=== PATIENT | female | born 1965 | race Hispanic/Latino ===

== ENCOUNTER 2017-05-15 16:55 | Emergency (ER) | payer BC ==
[2017-05-15 16:59] VITALS: BMI 36.3
[2017-05-15 17:03] VITALS: TEMP 98.5; O2SAT 100
[2017-05-15] MEDS ORDERED: Sodium Chloride 0.9% 1,000 ML IV STA (17:13)
--- NOTE | 2017-05-15 17:16 | ED PDOC ---
Arrival/HPI - General Historian: Patient <Inderjit Cooley - Last Filed: 05/15/17 20:05> <Licha Pace - Last Filed: 05/15/17 20:12> - General Chief Complaint: Back Pain Time Seen by Provider: 05/15/17 16:58 - History of Present Illness Narrative History of Present Illness (Text): 05/15/17 17:15 Pt is a 51yo F w/ a PMhx of HTN and recurrent ureteral stones who is coming to the hospital with acute onset left flank pain. Denies burning/urgency/freq/or lack of urination. Denies fevers/chills. States pain is left sided, intense, sharp/stabbing and feels exactly like when she has had stones in the past Urologist: Dr. Jasmin Hauser: does not recall HTN meds Allergies: None FamHx: Unobtainable; patient is in too much pain Surgeries: C section, 2 rotator cuff repairs, multiple lithotripsy and stent placements Allergies: none Social: Lives at home, previous smoker, denies illicit drug use (states took percocet before coming for pain). (Inderjit Cooley) Past Medical History - Provider Review Nursing Documentation Reviewed: Yes - Travel History Have you recently traveled outside [place] w/in the past 3 mons?: No - Infectious Disease Hx of Infectious Diseases: None - Cardiac Hx Cardiac Disorders: Yes Hx Hypertension: Yes (unsure of med, but boarderline) - Pulmonary Hx Respiratory Disorders: No - Neurological Hx Neurological Disorder: No - HEENT Hx HEENT Disorder: No - Renal Hx Renal Disorder: Yes Hx Kidney Stones: Yes - Endocrine/Metabolic Hx Endocrine Disorders: No - Hematological/Oncological Hx Blood Disorders: No - Integumentary Hx Dermatological Disorder: No - Musculoskeletal/Rheumatological Hx Musculoskeletal Disorders: Yes Hx Back Pain: Yes - Gastrointestinal Hx Gastrointestinal Disorders: No - Genitourinary/Gynecological Hx Genitourinary Disorders: No - Psychiatric Hx Psychophysiologic Disorder: No Hx Substance Use: No - Surgical History Hx Cholecystectomy: Yes Other/Comment: b/l rotator cuff surgery. Kidney stone laser surgery - Anesthesia Hx Anesthesia: Yes Hx Anesthesia Reactions: No <Inderjit Cooley - Last Filed: 05/15/17 20:05> <Licha Pace - Last Filed: 05/15/17 20:12> - Patient History Narrative Patient History: as stated in HPI (Inderjit Cooley) Family/Social History - Physician Review Nursing Documentation Reviewed: Yes Family/Social History: No Known Family HX Smoking Status: Never Smoked Hx Alcohol Use: No Hx Substance Use: No <LangbernadineInderjit nickerson - Last Filed: 05/15/17 20:05> Allergies/Home Meds <Inderjit Cooley - Last Filed: 05/15/17 20:05> <KatelynnRyanfloyd - Last Filed: 05/15/17 20:12> Allergies/Adverse Reactions: Allergies No Known Allergies Allergy (Verified 05/15/17 16:59) Review of Systems - Review of Systems Constitutional: absent: Fatigue, Weight Change Eyes: absent: Vision Changes, Photophobia ENT: absent: Hearing Changes, Tinnitus Respiratory: absent: SOB, Cough, Sputum Cardiovascular: absent: Chest Pain Gastrointestinal: Abdominal Pain, Food Intolerance Genitourinary Female: absent: Dysuria, Frequency, Hematuria, Urine Output Changes Musculoskeletal: Back Pain. absent: Arthralgias, Neck Pain, Joint Swelling, Myalgias Skin: absent: Rash, Pruritis Neurological: absent: Headache, Dizziness Endocrine: absent: Diaphoresis Hemo/Lymphatic: absent: Adenopathy Psychiatric: absent: Anxiety <Inderjit Cooley - Last Filed: 05/15/17 20:05> Physical Exam Vital Signs Reviewed: Yes Temperature: Afebrile Blood Pressure: Hypertensive Pulse: Tachycardic Respiratory Rate: Tachypneic Appearance: Positive for: Uncomfortable (in immense pain crying hunched over in bed ) Mental Status: Positive for: Alert and Oriented X 3 - Systems Exam Head: Present: Atraumatic Pupils: Present: PERRL Extroacular Muscles: Present: EOMI Conjunctiva: Present: Normal Mouth: Present: Moist Mucous Membranes Neck: Present: Normal Range of Motion Respiratory/Chest: Present: Clear to Auscultation, Good Air Exchange Cardiovascular: Present: Regular Rate and Rhythm, Normal S1, S2, Tachycardic. No: Murmurs Abdomen: Present: Tenderness (left flank) Back: Present: Normal Inspection, CVA Tenderness (left sided ) Upper Extremity: Present: Normal Inspection. No: Cyanosis Lower Extremity: No: Edema, CALF TENDERNESS Neurological: Present: GCS=15, CN II-XII Intact, Speech Normal Skin: Present: Warm, Dry, Rashes Psychiatric: Present: Alert, Oriented x 3 <Inderjit Cooley - Last Filed: 05/15/17 20:05> Medical Decision Making <Inderjit Cooley - Last Filed: 05/15/17 20:05> <Licha Pace - Last Filed: 05/15/17 20:12> ED Course and Treatment: 05/15/17 17:27 CT Scan w/o Contrast CBC CMP Urinalysis Dilaudid, Toradol, NS bolus Disposition and reassess 05/15/17 17:29 CBC and CMP both WNL 05/15/17 19:17 CT scan showed obstructing 5mm proximal left uretral stone with left renal staghorn calculus; small bilateral non obstructing renal calculi with mild left hydronephrosis. 05/15/17 19:33 Placing a call to Dr. mckeon; awaiting call back 05/15/17 20:06 Dr. Shaw who is covering for Dr. Mckeon states that if the patients pain is controlled that she can go home and follow up in the urology clinic tomorrow. The patient is controlled in terms of pain and will be d/c home with close follow up tomorrow at Dr. Shaw's/Jasmin office. Case discussed with Dr. Pace The patient is encouraged to increase PO intake (fluids) (Inderjit Cooley) Report Date : 05/15/2017 18:58:41 PROCEDURE: CT Abdomen and Pelvis without intravenous contrast Dictator : Parish Perry MD IMPRESSION: Obstructing 5 mm proximal left ureteral calculus. Left renal staghorn calculus. Small bilateral nonobstructing renal calculi. Mild left hydronephrosis. No other acute abnormality. 05/15/17 19:48 Patient seen and examined with resident with c/o L flank pain. Given toradol and dilaudid and IVF with resolution of pain and feeling much better. CT showing 5 mm ureteral obstructive stone. Case discussed with Dr. Shaw, who said to d/c her home and have her use percocet or dilaudid orally and f/u in the urology office tomorrow. 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 (Katelynn,Rafik) - Lab Interpretations Lab Results: 05/15/17 17:27 05/15/17 17:27 Lab Results 05/15/17 17:39: Urine Color Yellow, Urine Appearance Clear, Urine pH 7.0, Ur Specific [place] 1.015, Urine Protein Negative, Urine Glucose (UA) Negative, Urine Ketones Negative, Urine Blood Trace-intact H, Urine Nitrate Negative, Urine Bilirubin Negative, Urine Urobilinogen 0.2, Ur Leukocyte Esterase Small H , Urine RBC 1 - 3, Urine WBC 2 - 5, Ur Epithelial Cells 3 - 4, Urine Bacteria Small, Urine HCG, Qual Negative 05/15/17 17:27: Sodium 138, Potassium 3.9, Chloride 101, Carbon Dioxide 23, Anion Gap 18, BUN 13, Creatinine 0.6, Est GFR ( Amer) > 60, Est GFR (Non- Af Amer) > 60, Random Glucose 139 H, Calcium 9.1, Total Bilirubin 0.6, AST 39, ALT 44, Alkaline Phosphatase 152 H, Total Protein 8.3, Albumin 4.6, Globulin 3.7 , Albumin/Globulin Ratio 1.2, Amylase 94, Lipase 251 05/15/17 17:27: PT 10.2, INR 0.94, APTT 27.8 05/15/17 17:27: WBC 9.4, RBC 5.00, Hgb 16.0, Hct 45.3, MCV 90.6, MCH 32.0, MCHC 35.3, RDW 12.5, Plt Count 231, MPV 9.7, Gran % 62.3, Lymph % (Auto) 29.3, [place] % (Auto) 5.0, Eos % (Auto) 3.3, Baso % (Auto) 0.1, Gran # 5.83, Lymph # 2.8, [place] # 0.5, Eos # 0.3, Baso # 0.01 - RAD Interpretation Radiology Orders: 05/15/17 17:12 ABD & PELVIS W/O PO OR IV CONT [CT] Stat - Medication Orders Current Medication Orders: Discontinued Medications Hydromorphone HCl (Dilaudid) 1 mg IVP STAT STA Stop: 05/15/17 17:19 Last Admin: 05/15/17 17:35 Dose: 1 mg Re-Assess: MAR Pain Assessment Document 05/15/17 18:35 OCS (Rec: 05/15/17 19:06 [id number]) Pain Reassessment Is this a pain reassessment? Yes Sleep Is patient sleeping during reassessment? Yes Sodium Chloride (Sodium Chloride 0.9%) 1,000 mls @ 999 mls/hr IV .Q1H1M STA Stop: 05/15/17 18:13 Last Admin: 05/15/17 17:36 Dose: 999 mls/hr Ceftriaxone Sodium (Rocephin 1 Gram Ivpb) 1 gm in 100 mls @ 200 mls/hr IVPB STAT STA PRN Reason: Protocol Stop: 05/15/17 18:48 Last Admin: 05/15/17 19:00 Dose: 200 mls/hr Ketorolac Tromethamine (Toradol) 30 mg IVP STAT STA Stop: 05/15/17 17:15 Last Admin: 05/15/17 17:35 Dose: 30 mg Re-Assess: MAR Pain Assessment Document 05/15/17 18:35 OCS (Rec: 05/15/17 19:06 [id number]) Pain Reassessment Is this a pain reassessment? Yes Sleep Is patient sleeping during reassessment? Yes Ondansetron HCl (Zofran Inj) 4 mg IVP STAT STA Stop: 05/15/17 17:14 Last Admin: 05/15/17 17:36 Dose: 4 mg - PA / GLOBAL ACCOUNT DIRECTOR / Resident Statement / has reviewed & agrees with the documentation as recorded. / has examined the patient and agrees with the treatment plan. <Licha Pace - Last Filed: 05/15/17 20:12> Disposition/Present on Arrival - Present on Arrival Any Indicators Present on Arrival: Yes History of DVT/PE: No History of Uncontrolled Diabetes: No Urinary Catheter: No History of Decub. Ulcer: No History Surgical Site Infection Following: None - Disposition Have Diagnosis and Disposition been Completed?: Yes Disposition Time: 20:09 Patient Plan: Discharge <Inderjit Cooley - Last Filed: 05/15/17 20:05> - Present on Arrival Any Indicators Present on Arrival: No - Disposition Have Diagnosis and Disposition been Completed?: Yes Disposition Time: 19:50 Patient Plan: Discharge <Licha Pace - Last Filed: 05/15/17 20:12> - Disposition Diagnosis: Left ureteral stone Patient Problems: Current Active Problems Problem Status Onset Left ureteral stone Acute Condition: GOOD Discharge Instructions (ExitCare): Ureteral Stones (ED) Additional Instructions: Drink a lot of fluids orally. Use the percocet as prescribed - 2 tabs every 6- 8 hours as needed. If no relief, use the dilaudid as prescribed. Follow up with Dr. Mckeon / Valeria tomorrow. Return to the emergency department if any new concerning symptoms. Prescriptions: HYDROmorphone [Dilaudid 2 mg Tab] 1 tab PO Q6H PRN #16 tab PRN Reason: Pain, Severe (8-10) Referrals: Sourav Ybarra MD [Primary Care Provider] - Follow up with primary Rich Mckeon MD [Staff Provider] - Follow up with primary
[2017-05-15] MEDS ORDERED: HYDROmorphone 1 mg/ml ISec IVP STA (17:18)
[2017-05-15 17:51] LABS: ALB/GLOB RATIO 1.2 (1.1-1.8); ALBUMIN 4.6 g/dL (3.0-4.8); ALT/SGPT 44 U/L (7-56); AMYLASE 94 U/L (35-125); AST/SGOT 39 U/L (15-39); BLOOD UREA NITROGEN 13 mg/dL (7-21); CALCIUM 9.1 mg/dL (8.4-10.5); GFR AFRICAN-AMERICAN > 60; GFR NON-AFRICAN AMERICAN > 60; LIPASE 251 U/L (23-300)
[2017-05-15 17:54] LABS: INR 0.94 (0.93-1.08); PARTIAL THROMBOPLASTIN TIME 27.8 Seconds (23.7-30.8); PROTHROMBIN TIME 10.2 Seconds (9.9-11.8)
[2017-05-15 17:59] LABS: MEAN CELL VOLUME 90.6 fL (80.0-105.0); WHITE BLOOD COUNT 9.4 10^3/ul (4.5-11.0)
[2017-05-15 18:00] LABS: BASO % 0.1 % (0.0-3.0); EOS # 0.3 (0.0-0.7); EOS % 3.3 % (1.5-5.0); GRAN # 5.83 (1.4-6.5); GRAN % 62.3 % (50.0-68.0); LYMPH # 2.8 (1.2-3.4); LYMPH % 29.3 % (22.0-35.0); MEAN CORPUSCULAR HGB CONC 35.3 g/dl (31.0-37.0); MEAN PLATELET VOLUME 9.7 fl (7.0-11.0); MONO # 0.5 (0.1-0.6); PLATELET COUNT 231 10^3/uL (120.0-450.0); RED CELL DISTRIBUTION WIDTH 12.5 % (11.5-14.5)
[2017-05-15 18:01] LABS: BASO # 0.01 K/mm3 (0.0-2.0)
[2017-05-15 18:09] LABS: URINE BILIRUBIN NEGATIVE (NEGATIVE); URINE BLOOD TRACE-INTACT (NEGATIVE); URINE GLUCOSE (UA) NEGATIVE (NEGATIVE); URINE LEUKOCYTE ESTERASE SMALL Leu/uL (NEGATIVE); URINE NITRATE NEGATIVE (NEGATIVE); URINE PROTEIN NEGATIVE mg/dL (<30 mg/dL); URINE UROBILINOGEN 0.2 E.U./dL (<1 E.U./dL)
[2017-05-15 18:13] LABS: URINE APPEARANCE CLEAR (CLEAR); URINE COLOR YELLOW (YELLOW)
[2017-05-15] MEDS ORDERED: cefTRIAXone 1 gm 1 GM/100 ML BAG IVPB STA (18:19)
[2017-05-15 18:21] LABS: HCG,QUALITATIVE URINE NEGATIVE (NEGATIVE)
[2017-05-15 18:25] VITALS: RESP 20
[2017-05-15 18:33] LABS: URINE BACTERIA SMALL (NEG)
--- NOTE | 2017-05-15 19:00 | CT ---
PROCEDURE: CT Abdomen and Pelvis without intravenous contrast HISTORY: L flank pain COMPARISON: 08/28/2014 TECHNIQUE: Without contrast.. Contrast Dose: 0 Radiation dose: Total exam DLP = 1356.62 mGy-cm. This CT exam was performed using one or more of the following dose reduction techniques: Automated exposure control, adjustment of the mA and/or kV according to patient size, and/or use of iterative reconstruction technique. FINDINGS: LOWER THORAX: Unremarkable. LIVER: Unremarkable. No gross lesion or ductal dilatation. GALLBLADDER AND BILE DUCTS: Status post cholecystectomy PANCREAS: Unremarkable. No gross lesion or ductal dilatation. SPLEEN: Unremarkable. ADRENALS: Unremarkable. No mass. KIDNEYS AND URETERS: Left renal staghorn calculus. Multiple small bilateral nonobstructing renal calculi. There is a 5 mm obstructing calculus in the proximal left ureter. There is mild left hydronephrosis. There is no right hydronephrosis. There is no renal mass. VASCULATURE: Unremarkable. No aortic aneurysm. BOWEL: Diverticulosis of descending and proximal sigmoid colon. No evidence of diverticulitis. No bowel obstruction. No other abnormal bowel loops are identified. APPENDIX: Unremarkable. Normal appendix. PERITONEUM: Unremarkable. No free fluid. No free air. LYMPH NODES: Unremarkable. No enlarged lymph nodes. BLADDER: Unremarkable. REPRODUCTIVE: Unremarkable uterus BONES: No acute fracture. OTHER FINDINGS: None. IMPRESSION: Obstructing 5 mm proximal left ureteral calculus. Left renal staghorn calculus. Small bilateral nonobstructing renal calculi. Mild left hydronephrosis. No other acute abnormality.
[2017-05-15 20:13] VITALS: BP 140/80; PULSE 90
== END 2017-05-15 20:10 | disposition home or self-care (01) ==
LOC: ED 16:55
DX: N20.1 Calculus of ureter (principal); I10 Essential (primary) hypertension
CPT/HCPCS: 74176; 80053; 81001; 82150; 83690; 84703; 85025; 85610; 85730; 87086; 96374; 96375; 99284; J0696; J1170; J1885; J2405; J7040

== ENCOUNTER 2017-08-02 15:40 | Inpatient (IN) | payer BC ==
[2017-08-02 15:41] VITALS: BMI 36.3
[2017-08-02] MEDS ORDERED: Sodium Chloride 0.9% 1,000 ML IV STA (16:19)
--- NOTE | 2017-08-02 16:25 | ED PDOC ---
Arrival/HPI - General Historian: Patient - History of Present Illness Time/Duration: 24 hours Symptom Onset: Sudden Symptom Course: Unchanged Quality: Throbbing Severity Level: 6 Activities at Onset: Rest Context: Home - General Chief Complaint: Back Pain Time Seen by Provider: 08/02/17 15:45 - History of Present Illness Narrative History of Present Illness (Text): 08/02/17 16:20 52yo F PMH nephrolithiasis recently treated for L staghorn calculi in April presenting with L flank pain x2 days. Pain is described as sharp, non-radiating flank pain, rated 6/10 constantly. Pt states that she had a uretral stent removed 2 weeks ago and 2 lithotripsy sessions done since then. However, pt states that last night she experienced the pain that was sharp and radiating to the L abdomen. Pt states it is similar to her usual kidney stone pain. Pt contacted Dr. Castellanos (her urologist) who advised her to come into the ED in case she needs a stent. pt denies fevers, hematuria, dysuria, n/v/d, cp, abd pain or any other complaints. (Sourav Santiago) Past Medical History - Provider Review Nursing Documentation Reviewed: Yes - Infectious Disease Hx of Infectious Diseases: None - Cardiac Hx Cardiac Disorders: Yes Hx Hypertension: Yes (on Norvasc 5mg) - Pulmonary Hx Respiratory Disorders: No - Neurological Hx Neurological Disorder: No - HEENT Hx HEENT Disorder: No - Renal Hx Renal Disorder: Yes Hx Kidney Stones: Yes (s/p stent removal 2 weeks ago and lithotripsy) - Endocrine/Metabolic Hx Endocrine Disorders: No - Hematological/Oncological Hx Blood Disorders: No - Integumentary Hx Dermatological Disorder: No - Musculoskeletal/Rheumatological Hx Musculoskeletal Disorders: Yes Hx Back Pain: Yes - Gastrointestinal Hx Gastrointestinal Disorders: No - Genitourinary/Gynecological Hx Genitourinary Disorders: No - Psychiatric Hx Psychophysiologic Disorder: No Hx Substance Use: No - Surgical History Hx Cholecystectomy: Yes Other/Comment: b/l rotator cuff surgery. Kidney stone laser surgery - Anesthesia Hx Anesthesia: Yes Hx Anesthesia Reactions: No Family/Social History - Physician Review Nursing Documentation Reviewed: Yes Family/Social History: No Known Family HX Smoking Status: Never Smoked Hx Alcohol Use: No Hx Substance Use: No Allergies/Home Meds Allergies/Adverse Reactions: Allergies No Known Allergies Allergy (Verified 08/02/17 16:11) Home Medications: Home Meds Medication Instructions Recorded Confirmed amLODIPine [Norvasc] 5 mg PO DAILY 08/02/17 08/02/17 Review of Systems - Physician Review All systems were reviewed & negative as marked: Yes - Review of Systems Constitutional: absent: Fevers, Night Sweats Cardiovascular: absent: Chest Pain, Palpitations Gastrointestinal: absent: Abdominal Pain, Diarrhea, Nausea, Vomiting Genitourinary Female: absent: Dysuria, Frequency, Hematuria Musculoskeletal: Other (L flank pain) Physical Exam Vital Signs Reviewed: Yes Appearance: Positive for: Well-Appearing Pain Distress: None Mental Status: Positive for: Alert and Oriented X 3 - Systems Exam Head: Present: Atraumatic, Normocephalic Pupils: Present: PERRL Extroacular Muscles: Present: EOMI Conjunctiva: Present: Normal Mouth: Present: Moist Mucous Membranes Neck: Present: Normal Range of Motion Respiratory/Chest: Present: Clear to Auscultation, Good Air Exchange. No: Respiratory Distress Cardiovascular: Present: Regular Rate and Rhythm, Normal S1, S2. No: Murmurs Abdomen: No: Tenderness, Distention Back: Present: CVA Tenderness (L>R). No: Midline Tenderness Upper Extremity: Present: Normal Inspection Lower Extremity: Present: Normal Inspection. No: Edema Neurological: Present: CN II-XII Intact, Speech Normal, Motor Func Grossly Intact, Normal Sensory Function Skin: Present: Warm, Dry Psychiatric: Present: Alert, Oriented x 3 Vital Signs Temp Pulse Resp BP Pulse Ox 08/02/17 18:20 87 16 128/76 99 08/02/17 16:07 98.7 F 90 18 123/68 99 Medical Decision Making Re-evaluation Time: 21:20 Reassessment Condition: Re-examined, Unchanged - Lab Interpretations I have reviewed the lab results: Yes ED Course and Treatment: 08/02/17 16:56 Claire Bolaños is a 52 year old female who presents to the emergency department with left flank pain. The patient was seen and examined with resident. Came up with treatment and disposition plan with resident. (Juan Mckeon) 08/02/17 16:39 Impression: 52yo F PMH nephrolithiasis s/p stent removal 2 weeks ago and lithotripsy x2 since then presenting with L flank pain Plan: - Reassess and disposition - KUB - Morphine for pain - Labs - UA Progress: 08/02/17 16:41 Dr. Castellanos was contacted and states to obtain KUB and labs and to get in touch with Dr. Jo regarding stent placement if results are concerning Report Date : 08/02/2017 17:27:56 KUB Creator : Varun Talamantes MD FINDINGS: BOWEL: Normal. No obstruction. No free air. BONES: Normal. OTHER FINDINGS: Calculus disease identified left midpole and lower pole region. The 2 largest calculi measure 15 and 18 mm. Midpole calculus right kidney 6 mm. IMPRESSION: Renal calculus disease bilaterally similar to that seen on prior plain film radiographs. CT - ABD PELVIS W/O PO OR IV CONT 05/15/2017 6:31:00 PM FINDINGS: Lower thorax: No acute findings. ABDOMEN: Liver: The liver is diffusely decreased in density, compatible with hepatic steatosis. Gallbladder and bile ducts: There has been a cholecystectomy. No biliary ductal dilatation. Pancreas: The pancreas is unremarkable. Spleen: The spleen is unremarkable. Adrenals: The adrenal glands are unremarkable. Kidneys and ureters: Moderate to severe left hydronephrosis with multiple left ureteral stones measuring 0.7 cm and 0.3 cm proximally and 3 mm and 3 mm distally. Additional bilateral nonobstructing renal stones, left greater than right, measuring up to 1 cm in the left lower pole. Left perinephric stranding. Stomach and bowel: Distal colonic diverticulosis without evidence of diverticulitis. No evidence of bowel obstruction. No pericolonic inflammatory stranding. Appendix: A normal appendix is identified. PELVIS: Bladder: No focal wall thickening of the urinary bladder. No stones. Reproductive: Uterus is unremarkable. No suspicious adnexal lesion seen. ABDOMEN and PELVIS: Intraperitoneal space: No significant peritoneal free fluid. No free peritoneal air. Bones/joints: Severe degenerative disc disease L5-S1. No acute osseous abnormality. Soft tissues: No soft tissue swelling. Vasculature: Significantly limited assessment of the vasculature without contrast. No aortic aneurysm. Lymph nodes: No enlarged lymph nodes. IMPRESSION: Moderate to severe left hydronephrosis with multiple left ureteral stones. Additional bilateral nonobstructing renal stones. Dictated and Authenticated by: Parag Barrientos MD 08/02/2017 8:15 PM Eastern Time ([place] & [place]) 08/02/17 21:[address] Díaz who accepts the patient onto their service. Reassessment: pt is resting comfortably, and in no acute distress. offers no complaints and it was relayed to her that it was discussed with Dr. Jo that she would be admitted. 08/02/17 21:27 Pt will be going to OR tonight per Dr. Jo. Coags, type and screen, and EKG ordered. (Sourav Santiago) - Lab Interpretations Lab Results: 08/02/17 16:25 08/02/17 16:25 Lab Results 08/02/17 16:35: Urine Color Light yellow, Urine Appearance Clear, Urine pH 6.0, Ur Specific [place] 1.025, Urine Protein Trace H, Urine Glucose (UA) Negative, Urine Ketones Negative, Urine Blood Trace-intact H, Urine Nitrate Negative, Urine Bilirubin Negative, Urine Urobilinogen 0.2, Ur Leukocyte Esterase Trace H , Urine RBC 2 - 5, Urine WBC 5 - 10, Ur Epithelial Cells 3 - 4, Urine Bacteria Mod 08/02/17 16:25: Sodium 140, Potassium 4.2, Chloride 101, Carbon Dioxide 28, Anion Gap 15, BUN 16, Creatinine 0.9, Est GFR ( Amer) > 60, Est GFR (Non- Af Amer) > 60, Random Glucose 99, Calcium 9.4, Phosphorus 4.5, Magnesium 2.1, Total Bilirubin 0.5, AST 39 H, ALT 40, Alkaline Phosphatase 124, Total Protein 7.7, Albumin 4.3, Globulin 3.4, Albumin/Globulin Ratio 1.3, Lipase 150 08/02/17 16:25: WBC 7.8, RBC 4.50, Hgb 14.2, Hct 41.5, MCV 92.2, MCH 31.6, MCHC 34.2, RDW 12.5, Plt Count 171, MPV 9.0, Gran % 56.7, Lymph % (Auto) 34.0, [place] % (Auto) 5.5, Eos % (Auto) 3.5, Baso % (Auto) 0.3, Gran # 4.41, Lymph # 2.6, [place] # 0.4, Eos # 0.3, Baso # 0.02 - RAD Interpretation Radiology Orders: 08/02/17 16:17 ABDOMEN (FLAT PLATE) 1VIEW [RAD] Stat 08/02/17 17:41 ABD & PELVIS W/O PO OR IV CONT [CT] Stat - Medication Orders Current Medication Orders: Discontinued Medications Sodium Chloride (Sodium Chloride 0.9%) 1,000 mls @ 999 mls/hr IV .Q1H1M STA Stop: 08/02/17 17:19 Last Admin: 08/02/17 16:30 Dose: 999 mls/hr eMAR Start Stop Document 08/02/17 16:30 SE (Rec: 08/02/17 16:30 [id number]) Intravenous Solution Start Date 08/02/17 Start Time 16:30 Ibuprofen (Motrin Tab) 600 mg PO STAT STA Stop: 08/02/17 16:14 Last Admin: 08/02/17 16:30 Dose: Not Given Non-Admin Reason: Patient Refused Morphine Sulfate (Morphine) 4 mg IVP STAT STA Stop: 08/02/17 16:30 Last Admin: 08/02/17 16:34 Dose: 4 mg MAR Pain Assessment Document 08/02/17 16:34 SE (Rec: 08/02/17 16:34 [id number]) Pain Reassessment Is this a pain reassessment? No Sleep Is patient sleeping during reassessment? No Presence of Pain Presence of Pain Yes Pain Scale Used Pain Scale Used Numeric IVP Administration Document 08/02/17 16:34 SE (Rec: 08/02/17 16:34 [facility] [id number]) Charges for Administration # of IVP Administrations 1 Morphine Sulfate (Morphine) 4 mg IVP STAT STA Stop: 08/02/17 20:32 Last Admin: 08/02/17 20:41 Dose: 4 mg MAR Pain Assessment Document 08/02/17 20:41 SE (Rec: 08/02/17 20:41 [id number]) Pain Reassessment Is this a pain reassessment? No Sleep Is patient sleeping during reassessment? No Presence of Pain Presence of Pain Yes Pain Scale Used Pain Scale Used Numeric IVP Administration Document 08/02/17 20:41 SE (Rec: 08/02/17 20:41 [id number]) Charges for Administration # of IVP Administrations 1 Disposition/Present on Arrival - Present on Arrival Any Indicators Present on Arrival: No History of DVT/PE: No History of Uncontrolled Diabetes: No Urinary Catheter: No History of Decub. Ulcer: No History Surgical Site Infection Following: None - Disposition Have Diagnosis and Disposition been Completed?: Yes Disposition Time: 21:28 Patient Plan: Admission - Disposition Diagnosis: Nephrolithiasis, Flank pain, Hydronephrosis Disposition: HOSPITALIZED Patient Problems: Current Active Problems Problem Status Onset Flank pain Acute Hydronephrosis Acute Nephrolithiasis Acute Condition: GOOD Referrals: Sourav Ybarra MD [Primary Care Provider] - Follow up with primary Forms: [employer] ([place])
[2017-08-02] MEDS ORDERED: Morphine 4 mg/ml ISec IVP STA ×2 (16:29→20:31)
[2017-08-02] MEDS ORDERED: Morphine 4 mg/ml ISec ONE ×2 (16:29→20:42)
[2017-08-02 16:39] LABS: BASO # 0.02 K/mm3 (0.0-2.0); BASO % 0.3 % (0.0-3.0); EOS # 0.3 (0.0-0.7); EOS % 3.5 % (1.5-5.0); GRAN # 4.41 (1.4-6.5); GRAN % 56.7 % (50.0-68.0); HEMATOCRIT 41.5 % (36.0-48.0); LYMPH # 2.6 (1.2-3.4); MEAN CELL VOLUME 92.2 fl (80.0-105.0); MEAN CORPUSCULAR HEMOGLOBIN 31.6 pg (25.0-35.0); MEAN CORPUSCULAR HGB CONC 34.2 g/dl (31.0-37.0); MONO # 0.4 (0.1-0.6); MONO % 5.5 % (1.0-6.0); RED CELL DISTRIBUTION WIDTH 12.5 % (11.5-14.5); WHITE BLOOD COUNT 7.8 10^3/ul (4.5-11.0)
[2017-08-02 16:42] LABS: URINE BILIRUBIN NEGATIVE (NEGATIVE); URINE BLOOD TRACE-INTACT (NEGATIVE); URINE GLUCOSE (UA) NEGATIVE (NEGATIVE); URINE KETONE NEGATIVE (NEGATIVE); URINE LEUKOCYTE ESTERASE TRACE Leu/uL (NEGATIVE); URINE PROTEIN TRACE mg/dL (<30 mg/dL); URINE UROBILINOGEN 0.2 E.U./dL (<1 E.U./dL)
[2017-08-02 16:47] LABS: ALB/GLOB RATIO 1.3 (1.1-1.8); ALKALINE PHOSPHATASE 124 U/L (38-126); ALT/SGPT 40 U/L (7-56); AST/SGOT 39 U/L (14-36); BILIRUBIN,TOTAL 0.5 mg/dL (0.2-1.3); BLOOD UREA NITROGEN 16 mg/dL (7-21); CALCIUM 9.4 mg/dL (8.4-10.5); CARBON DIOXIDE 28 mmol/L (21-33); CHLORIDE 101 mmol/L (98-107); GFR AFRICAN-AMERICAN > 60; GLUCOSE,RANDOM 99 mg/dL (70-110); LIPASE 150 U/L (23-300); MAGNESIUM 2.1 mg/dL (1.7-2.2); PHOSPHOROUS 4.5 mg/dL (2.5-4.5); POTASSIUM 4.2 mmol/L (3.6-5.0); SODIUM 140 mmol/L (132-148); TOTAL PROTEIN 7.7 g/dL (5.8-8.3)
[2017-08-02 16:56] LABS: URINE APPEARANCE CLEAR (CLEAR); URINE COLOR LIGHT YELLOW (YELLOW)
[2017-08-02 17:26] LABS: URINE BACTERIA MOD (NEG)
--- NOTE | 2017-08-02 20:02 | RAD ---
HISTORY: Abdominal pain, history of calculus disease. COMPARISON: 09/07/2014 plain film radiographs. 05/15/2017. CT abdomen and pelvis FINDINGS: BOWEL: Normal. No obstruction. No free air. BONES: Normal. OTHER FINDINGS: Calculus disease identified left midpole and lower pole region. The 2 largest calculi measure 15 and 18 mm. Midpole calculus right kidney 6 mm. IMPRESSION: Renal calculus disease bilaterally similar to that seen on prior plain film radiographs.
[2017-08-02] MEDS ORDERED: HYDROmorphone 1 mg/ml ISec IVP PRN (21:55)
[2017-08-02] MEDS ORDERED: Dextrose 5%/0.45% NS 1,000 ML IV SCH (22:00)
[2017-08-02] MEDS ORDERED: Lidocaine 1% Inj (20ml) ONE (23:03)
[2017-08-02] MEDS ORDERED: Propofol 10 mg/ml Inj (20 ML) ONE (23:03)
[2017-08-02] MEDS ORDERED: Oxycodone/Acetaminophen 5/325 mg Tab PO STA (23:08)
[2017-08-02] MEDS ORDERED: Gentamicin 80mg/50ml NS 80 MG/50 ML BAG IVPB SCH (23:16)
[2017-08-02] MEDS ORDERED: cefTRIAXone (Rocephin) 1 gm Inj ONE (23:19)
[2017-08-02] MEDS ORDERED: Iohexol 240 (50 ml) ONE (23:19)
[2017-08-02] MEDS ORDERED: Lactated Ringer's 1,000 ML IV SCH (23:45)
[2017-08-02] MEDS ORDERED: HYDROmorphone 0.5 mg/0.5 ml ISec IVP PRN (23:49)
[2017-08-02] MEDS ORDERED: HYDROmorphone 0.5 mg/0.5 ml ISec ONE (23:51)
[2017-08-02] MEDS ORDERED: Gentamicin 80mg/50ml NS 80 MG/50 ML BAG IVPB ONE (23:59)
[2017-08-03] MEDS ORDERED: Gentamicin IV 80mg/50ml NS(PREMIX) IVPB ONE
[2017-08-03] MEDS ORDERED: Oxycodone/Acetaminophen 5/325 mg Tab ONE (00:23)
[2017-08-03] MEDS ORDERED: Oxycodone/Acetaminophen 5/325 mg Tab PO ONE (00:25)
[2017-08-03 04:59] VITALS: RESP 20
--- NOTE | 2017-08-03 05:11 | HP ---
HISTORY OF PRESENT ILLNESS: Patient is 52-year-old, patient of Dr. Ybarra, came to Emergency Room because of left flank pain. Patient states she has been having this pain off and on for since April. She went to see Dr. Castellanos. Patient had stent placed, it was removed 2 weeks ago. Patient has 2 sessions of lithotripsy recently. She was doing well, but last night she started to have sharp pain in her left flank radiating to the left lower abdomen. Denies any fever or chills, and does complain of some discomfort upon urination. She called Dr. Castellanos who advised to come to Emergency Room. Denies any hematuria. No history of nausea or vomiting. No hemoptysis or hematemesis. PAST MEDICAL HISTORY: He has significant past medical history; 1. Positive hypertension. 2. Left nephrolithiasis. 3. Chronic back pain. SURGICAL HISTORY: Significant for cholecystectomy and bilateral rotator cuff tear surgery. ALLERGIES: SHE IS NOT ALLERGIC TO ANY MEDICATION. MEDICATIONS AT HOME: She is on Norvasc 5 mg daily. SOCIAL HISTORY: Denies smoking, drinking, or alcohol use. REVIEW OF SYSTEMS: Significant for left flank pain and left costophrenic discomfort. PHYSICAL EXAMINATION GENERAL: She is awake, and alert, communicative. VITAL SIGNS: She is afebrile. Pulse is 90, respirations 18 and blood pressure 128/76. LUNGS: Bilateral fair airflow. No rhonchi or crackles. HEART: S1 and S2 audible. ABDOMEN: Soft. Left costophrenic angle discomfort. NEUROLOGIC: She is awake and alert, communicative. LABORATORY DATA: WBC 7.8, hemoglobin 14, hematocrit 41 and platelets 171. Chemistry; sodium 140, potassium 4.2, chloride 101, CO2 of 28, BUN 16 and creatinine 0.9. Blood sugar of 99. LFTs are within normal limits. Urinalysis shows trace blood, trace leukocyte and protein. X-ray of chest is unremarkable. CT scan shows left hydronephrosis. Plain x-ray of abdomen showed renal calculus bilaterally similar to the . ASSESSMENT: 1. Renal colic. 2. Left hydronephrosis. 3. Status post left lithotripsy. 4. Hypertension. PLAN: We will start patient on IV fluid. Zofran as needed. She will be given Dilaudid 1 mg q. 4 hours p.r.n. We will follow up her CBC and CMP in a.m. Dr. Castellanos has been consulted. Franky Díaz MD
[2017-08-03 06:36] LABS: BASO # 0.01 K/mm3 (0.0-2.0); BASO % 0.2 % (0.0-3.0); EOS # 0.2 (0.0-0.7); EOS % 2.9 % (1.5-5.0); GRAN # 3.38 (1.4-6.5); GRAN % 66.3 % (50.0-68.0); HEMATOCRIT 38.9 % (36.0-48.0); LYMPH # 1.3 (1.2-3.4); LYMPH % 24.5 % (22.0-35.0); MEAN CELL VOLUME 93.1 fl (80.0-105.0); MEAN CORPUSCULAR HEMOGLOBIN 31.3 pg (25.0-35.0); MEAN CORPUSCULAR HGB CONC 33.7 g/dl (31.0-37.0); MEAN PLATELET VOLUME 8.7 fl (7.0-11.0); MONO # 0.3 (0.1-0.6); MONO % 6.1 % (1.0-6.0); RED CELL DISTRIBUTION WIDTH 12.6 % (11.5-14.5); WHITE BLOOD COUNT 5.1 10^3/ul (4.5-11.0)
[2017-08-03 06:56] LABS: ALB/GLOB RATIO 1.3 (1.1-1.8); ALKALINE PHOSPHATASE 88 U/L (38-126); ALT/SGPT 33 U/L (7-56); AST/SGOT 32 U/L (14-36); BILIRUBIN,TOTAL 0.4 mg/dL (0.2-1.3); BLOOD UREA NITROGEN 14 mg/dL (7-21); CALCIUM 8.6 mg/dL (8.4-10.5); CARBON DIOXIDE 29 mmol/L (21-33); CHLORIDE 104 mmol/L (98-107); GFR AFRICAN-AMERICAN > 60; GLUCOSE,RANDOM 120 mg/dL (70-110); SODIUM 141 mmol/L (132-148); TOTAL PROTEIN 6.8 g/dL (5.8-8.3)
[2017-08-03 08:16] VITALS: BP 123/79; PULSE 77; TEMP 97.9; O2SAT 97
--- NOTE | 2017-08-03 09:04 | CT ---
PROCEDURE: CT Abdomen and Pelvis without intravenous contrast HISTORY: left flank pain COMPARISON: 05/15/2017Summary of findings on the comparison examination:Obstructing 5 mm proximal left ureteral calculus. Left renal staghorn calculus. Small bilateral nonobstructing renal calculi. Mild left hydronephrosis. No other acute abnormality TECHNIQUE: Unenhanced study. Neither oral nor intravenous contrast administered. Radiation dose: Total exam DLP = 1157.57 mGy-cm. This CT exam was performed using one or more of the following dose reduction techniques: Automated exposure control, adjustment of the mA and/or kV according to patient size, and/or use of iterative reconstruction technique. FINDINGS: LOWER THORAX: Unremarkable. LIVER: Unremarkable. No gross lesion or ductal dilatation. GALLBLADDER AND BILE DUCTS: Status post cholecystectomy. No abnormality is seen in the gallbladder fossa. PANCREAS: Unremarkable. No gross lesion or ductal dilatation. SPLEEN: Unremarkable. ADRENALS: Unremarkable. No mass. KIDNEYS AND URETERS: Left kidney: Multiple fragments from previously identified staghorn calculus the preponderance of which are 8 mm or less residing in a dilated left lower pole collecting system. Smaller fragments in the midpole collecting system on the left. Proximal left ureteral calculus 5.5 x 10.7 cm. Left kidney is edematous to greater degree than that seen previously as is the degree of distention of the left collecting systems. Right kidney: Nonobstructing calculus lower pole measures 6 mm. VASCULATURE: Unremarkable. No aortic aneurysm. BOWEL: Diverticulosis without an acute inflammatory component or other associated pathologic process. APPENDIX: Unremarkable. Normal appendix. PERITONEUM: Unremarkable. No free fluid. No free air. LYMPH NODES: Unremarkable. No enlarged lymph nodes. BLADDER: Unremarkable. REPRODUCTIVE: Unremarkable. BONES: No acute fracture. OTHER FINDINGS: None. IMPRESSION: 1. Unilateral, left obstructive uropathy related to proximal left ureteral calculus disease. The left kidney is edematous and the degree of hydronephrosis exceeds that seen on the prior study. 2. Fragmented calculi suggesting lithotripsy since the prior study for staghorn calculus on the left. 3. Nonobstructing right renal calculus disease.
--- NOTE | 2017-08-03 09:45 | RAD ---
PROCEDURE: Retrograde pyelogram HISTORY: STENT INSERTION COMPARISON: None TECHNIQUE: Standard protocol for this study/examination. FINDINGS: Total fluoroscopic time (continuous mode) utilized during the procedure: 17.7 seconds IMPRESSION: Less than 1 hr fluoroscopic time utilized during performance of the procedure. For unilateral, left double-J stent catheter placement
--- NOTE | 2017-08-03 11:43 | CON ---
UROLOGY CONSULTATION DATE: 08/02/2017 REASON FOR CONSULTATION: Severe renal colic. See the plans at the end, where she is going to the OR as an emergency. HISTORY OF PRESENT ILLNESS: Ms. Bolaños is a pleasant lady, she is 52 years old. The history is from the patient and also from Dr. Castellanos, her urologist. I spoke to him earlier today on the patient, and I also spoke to the patient, and history is from there. The patient is initially admitted and seen by Dr. Castellanos years ago, where she was treated with shockwave lithotripsy. She had then come to me for discussing options. We have done shockwave lithotripsy at that time, but again, it was apparently known to her that she had 15 stones and we discussed that it may not work well. Shockwave lithotripsy and we discussed other options of percutaneous nephrolithotomy and ureteroscopy with laser lithotripsy. Subsequent to me seeing her, I actually referred her to [facility] to Dr. Alfredo, which she then described that he was able to get rid of all of her stones and had been stone-free until most recently. I had not seen her back after that point. (On a social note or just of an interest note, her number when I spoke with her tonight on the cell phone, her contact was already in my phone). Anyway, the patient recently had a cystoscopy and a stent insertion and then had an ESWL therapy two times, and then had the stent removed. As the patient described, she knew she had some stones in place, was hoping that the stones would come out, but nothing has passed and she actually comes in with severe renal colic. Today, she had spoken to Dr. Castellanos about options, but she had already eaten at that point, so she then came to the hospital later in the afternoon. It is currently about 11 p.m. at night. We are planning to put a stent, and see the plans listed below. For severe pain that is not resolving, actually stopping the progression. PAST MEDICAL AND SURGICAL HISTORIES: As listed on the chart. No history of TX or CVA. SOCIAL HISTORY: She lives with her and her daughter; otherwise, unremarkable. REVIEW OF SYSTEMS: As listed above. No weight loss, chest pain, shortness of breath; otherwise, no real significant constitutional complaints. PHYSICAL EXAMINATION: GENERAL: She is a well-developed, well-nourished female. She is currently resting on the gurney. VITAL SIGNS: Within normal limits and afebrile. The remainder of the physical exam is as per history of present illness. LUNGS: Clear. HEART: Normal. S1 and S2 regular. ABDOMEN: Overall soft. No CVA tenderness. PELVIC: No issue now. No pelvic or rectal masses. . NEUROLOGIC: All within normal limits. EXTREMITIES: All within normal limits. LABORATORY DATA: See chart. White count 7.8. Normal renal function. BUN, creatinine, etc., within normal limits. Urinalysis showed some blood. Nitrites are noted to be negative. The CT scan is reviewed. There is no official report yet, but there are stones definitely. There is a stone on the right kidney. No hydro there. The left kidney had some hydro, there are some local stones, and there are multiple stones along the ureter. DIAGNOSES: Urolithiasis, severe renal colic, hematuria, and hydronephrosis. PLAN: As follows; we are going to go to the OR as an emergency. I discussed during the day with Dr. Castellanos, different plans and options. I discussed with the patient now plans and options. I discussed observation. I discussed ureteroscopy with laser lithotripsy, which cannot be done right now. I discussed the possibility for awaiting. I discussed of doing a percutaneous nephrolithotomy. I discussed any options available. I think the first immediate treatment is for cysto with stent insertion that should relieve her from pain. I did discuss that sometimes it could be with many stones along the way that may be difficult, but we are going to most likely be able to get her stented. So, the plan is as follows: 1. Cystoscopy. 2. Stent insertion. 3. We will provide antibiotic prophylaxis and then further plans will follow. So, the plans are to go to the OR. ADDENDUM: See operative report. We did a cysto, retrograde, and stent insertion without complications. Multiple stones are noted. The patient tolerated the procedure well with no blood loss. We have given antibiotic prophylaxis with Rocephin. We are also going to provide gentamicin, and we will provide analgesics. I had a chance to speak to the patient and the family, and then further plans will follow. We will discuss various options for treatment. The patient has a large stone burden. There is a good amount of stones in the kidney in the lower pole, and we will discuss with them in terms of AUA guidelines and percutaneous versus ureteroscopy. So further plans will follow depending on the patient's plan. We will also discuss this with Dr. Castellanos. Initially, I had spoken to the patient about that, that most likely our recommendations will be to return to Dr. Castellanos and discuss options with him. That will still be our recommendation and plan as an outpatient basis depending on the next step. Elijah Jo MD
--- NOTE | 2017-08-03 14:23 | DS ---
HISTORY OF PRESENT ILLNESS: The patient is 52-year-old, seen and examined. She was admitted last night with renal colic. The patient states she has been having left flank pain since April. She had lithotripsy done in May and followed by second lithotripsy done on June 28 and she passed some of the gravel, but did not pass all the stones. However, her stent was removed on July 26 and since yesterday, she was having left flank pain just like prior to all these procedures, so she came to ER for further evaluation. The patient was evaluated by Dr. oJ, who had stent placed overnight. PHYSICAL EXAMINATION: GENERAL: Today, the patient seems to be comfortable. VITAL SIGNS: She is afebrile, pulse 77, respirations 20, blood pressure 123/79. LUNGS: Bilateral fair airflow. No rhonchi or crackle. HEART: S1 and S2 audible. ABDOMEN: Soft, obese, nontender. No rebound. No guarding. She has some costophrenic discomfort, but no palpable tenderness. LABORATORY EXAM: WBC is 5.1, hemoglobin 13, hematocrit 38.9 and platelets 150. Chemistry: Sodium 141, potassium 4.0, chloride 104, CO2 of 29, BUN 14, creatinine 0.7. Blood sugar of 120. ASSESSMENT AND PLAN: 1. Left nephrolithiasis. 2. Renal colic. 3. Status post ureteral stent placement. 4. History of hypertension. 5. Left obstructive uropathy causing hydronephrosis. PLAN: The patient is clinically stable. She is being discharged home on Tylenol No. 3 and Cipro 500 twice a day. She will follow with Dr. Jo. The patient does have history of cystine stones. I will order for homocysteine and cystine level, and the patient is being discharged home on folic acid 1 mg daily also. She will follow with . Franky Díaz MD
--- NOTE | 2017-08-03 18:52 | OP ---
PROCEDURE DATE: 08/02/2017 PREOPERATIVE DIAGNOSES: Urolithiasis, severe; renal colic; left hydronephrosis; hematuria; history of cystinuria; stones. POSTOPERATIVE DIAGNOSES: Urolithiasis, severe; renal colic; left hydronephrosis; hematuria; history of cystinuria; stones; obstructive uropathy; cystocele. PROCEDURE: Exam under anesthesia, cystoscopy, left retrograde pyelogram, and insertion of left double J stent. COMPLICATIONS: No complications. ESTIMATED BLOOD LOSS: Less than 10 mL. FINDINGS: The bladder mucosa is within normal limits. The ureteral orifice is within normal limits. The left ureter is notably dilated, what seems to be the most obvious culprit is a left proximal upper ureter renal pelvic stone. There are other stones noted. See below. At the termination of the procedure, there was a left double J stent in reasonably good location. There is a nice curl in the bladder. (There is a cystocele noted). See the x-ray, and the stone is little bit above the renal pelvis in the upper pole region, but it is in the kidney draining well. INDICATIONS: See history and physical for more complete details and consultation notes for further details, but in brief the indications for the procedure; a very pleasant lady, I met years and years ago. She initially was a patient of Dr. Castellanos. She then came to see me after some of his treatments and we had discussed options. Subsequently, I did an ESWL on the patient. I do not have any of those records that predates my computer and it is Saturday night. Anyway, according to the patient's history, I had sent her to Dr. Vargas in [facility] at which time he treated her with ureteroscope and according to her, he totally eliminated the stones and there were no further stones (that is why we sent it to her). At that time, I discussed the option for percutaneous nephrostolithotomy, but apparently she was stone free and not having any problems until recently where she now presented to Dr. Castellanos who has tried an ESWL therapy once or twice and she had at that time been stented. Dr. Castellanos took out the stent and the patient has been okay till today. He spoke to me about the patient and we discussed the options and discussed all throughout with the patient. She is here now after the above immediate emergency surgical procedure for a cystoretrograde and a stent insertion. See the addendum in the plan at the end. I have had a chance to review her white count is within normal limits about 7 or 8. BUN and creatinine noted. Calcium noted. Labs are noted. CAT scan, I have reviewed carefully. There is a retrograde stone in the right kidney. There is no report in the chart, but there is a stone in the right kidney, two stones at least in the left kidney. Then in the ureter, there is stone with hydronephrosis. No other appreciable abnormalities. After discussing the options with the patient, risks, and benefits, and alternatives at length discussed with the patient, she is here now for a cysto for the above listed procedure. DESCRIPTION OF PROCEDURE: After obtaining informed consent, the patient was placed on the table, routine monitors were placed. Time-outs were called to confirm the patient positioning. I do want to mention, we had given the patient antibiotic prophylaxis. Using 1 g of Rocephin. The patient was now on the table. Antibiotics were given. Anesthesia monitoring. The patient was intubated and the time-out was called. The patient in lithotomy. We introduced cystoscope via urethra. Ureteral orifice identified. Left retrograde pyelogram was performed. Not all the films were saved well, but I do want to mention of the saved films, the upper ureter, I see other stones within the ureter. That corresponded well with the CAT scan. At that point, we started ____ the upper ureter stone. There was already a little contrast in the system at that point, but the filling defect was pretty obvious. Anyway, at this point, we inserted a wire up to the kidney at the point to the stone, it was a little bit tough, little stuck, it was little impacted, but with a little negotiation using the open-ended and the wire technique playing off each other. We were able to slip by and slip the stent and the wire all the way up to the kidney. Once we did this, we then introduced the double-J stent. We used 4.7, 22-32 cm Bard catheter. Confirmed the positioning. Again it was little in the upper pole and in the kidney itself, but looked good by a search criteria. In the bladder itself, again there was a mild cystocele, but it was in the bladder. The bladder was emptied. Cystoscope was removed. We confirmed the positioning by x-ray and also direct vision. Exam under anesthesia revealed a mild cystocele. As mentioned, it looks little more so on the x-ray. Overall, the patient tolerated the procedure well without complication. 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 We will discuss all this further or more likely I will discuss this also with the patient to return to Dr. Castellanos for his recommendations and plans. The patient should do well with this and then further plans to follow. Elijah Jo MD
== END 2017-08-03 11:38 | disposition home or self-care (01) | DRG 694 ==
LOC: ED 15:40 → ERH 21:23 → 5RSO 08-03 01:11
PROVIDERS: ADMIT Internal Medicine; ATTEND Internal Medicine
PROC: BT1FZZZ Fluoroscopy of Left Kidney, Ureter and Bladder (ICD-10-PCS; 2017-08-02)
PROC: 0T778DZ Dilation of Left Ureter with Intraluminal Device, Via Natural or Artificial Opening Endoscopic (ICD-10-PCS; principal; 2017-08-02 11:05)
DX: N13.2 Hydronephrosis with renal and ureteral calculous obstruction (principal); I10 Essential (primary) hypertension; N81.10 Cystocele, unspecified; Z87.442 Personal history of urinary calculi; Z90.49 Acquired absence of other specified parts of digestive tract; Z79.899 Other long term (current) drug therapy; R31.9 Hematuria, unspecified

== ENCOUNTER 2017-12-01 09:42 | Day surgery (SDC) | payer BC ==
--- NOTE | 2017-12-01 09:57 | ED PDOC ---
Arrival/HPI - General Chief Complaint: Abdominal Pain Time Seen by Provider: 12/01/17 09:53 Historian: Patient - History of Present Illness Narrative History of Present Illness (Text): 12/01/17 09:56 pt p/w + < 1 day onset of right flank pain, pain radiating down her right groin into her upper thigh; + 8/10 pain; + urinary discomfort, + urinary frequency; no hematuria; + sweats, + mild nausea; no fever/chills, no cp/sob/palpitations, no front abd pain, no vomiting, no numbness/tingling, no bowel changes, no fall/ trauma/sick contact, no travel; pt denied other complaints; pt is here for further eval. pt states her current pain is similar to her prior kidney stone pain attacks, last attack was 2-3 months ago pt is here for further eval pt's without other complaints Time/Duration: 24 hours Symptom Onset: Sudden Symptom Course: Worsening Quality: Cramping Severity Level: 8, Severe Activities at Onset: Rest Context: Home Past Medical History - Provider Review Nursing Documentation Reviewed: Yes - Travel History Have you recently traveled outside [place] w/in the past 3 mons?: No - Past History Past History: No Previous - Infectious Disease Hx of Infectious Diseases: None - Cardiac Hx Cardiac Disorders: Yes Hx Hypertension: Yes (on Norvasc 5mg) - Pulmonary Hx Respiratory Disorders: No - Neurological Hx Neurological Disorder: No - HEENT Hx HEENT Disorder: No - Renal Hx Renal Disorder: Yes Hx Kidney Stones: Yes (s/p stent removal 2 weeks ago and lithotripsy) - Endocrine/Metabolic Hx Endocrine Disorders: No - Hematological/Oncological Hx Blood Disorders: No - Integumentary Hx Dermatological Disorder: No - Musculoskeletal/Rheumatological Hx Musculoskeletal Disorders: Yes Hx Back Pain: Yes - Gastrointestinal Hx Gastrointestinal Disorders: No - Genitourinary/Gynecological Hx Genitourinary Disorders: No - Psychiatric Hx Psychophysiologic Disorder: No Hx Substance Use: No - Surgical History Hx Cholecystectomy: Yes Other/Comment: b/l rotator cuff surgery. Kidney stone laser surgery - Anesthesia Hx Anesthesia: Yes Hx Anesthesia Reactions: No Family/Social History - Physician Review Nursing Documentation Reviewed: Yes Family/Social History: Unknown Family HX Smoking Status: Never Smoked Hx Alcohol Use: No Hx Substance Use: No Hx Substance Use Treatment: No Allergies/Home Meds Allergies/Adverse Reactions: Allergies No Known Allergies Allergy (Verified 12/01/17 09:58) Home Medications: Home Meds Medication Instructions Recorded Confirmed amLODIPine [Norvasc] 5 mg PO DAILY 08/02/17 12/01/17 Review of Systems - Physician Review All systems were reviewed & negative as marked: Yes - Review of Systems Constitutional: Night Sweats. absent: Fatigue, Weight Change Eyes: Normal ENT: Normal Respiratory: Normal Cardiovascular: Normal Gastrointestinal: Abdominal Pain, Nausea Genitourinary Female: Frequency Musculoskeletal: Back Pain, Other (right flank pain) Skin: Normal Neurological: Normal Endocrine: Normal Hemo/Lymphatic: Normal Psychiatric: Normal Physical Exam Vital Signs Reviewed: Yes Vital Signs Temp Pulse Resp BP Pulse Ox 12/01/17 12:08 98 F 76 20 125/71 99 12/01/17 09:57 98.9 F 90 18 142/108 H 99 Temperature: Afebrile Blood Pressure: Hypertensive Pulse: Regular Respiratory Rate: Normal Appearance: Positive for: Well-Appearing, Non-Toxic, Uncomfortable, Other ( sitting on the bed, alert/awake, cooperative, moderate distress due to pain, uncomfortable, colicky appearing; follows command with ease) Pain Distress: Mild Mental Status: Positive for: Alert and Oriented X 3 - Systems Exam Head: Present: Atraumatic, Normocephalic Pupils: Present: PERRL, Other (no nystagmus, no photophobia) Extroacular Muscles: Present: EOMI Conjunctiva: Present: Normal Mouth: Present: Moist Mucous Membranes, Other (uvula/tongue are midline, no exudate/lesions, no drooling/stridor) Pharnyx: Present: Normal Nose (External): Present: Atraumatic Nose (Internal): Present: Normal Inspection Neck: Present: Normal Range of Motion, Trachea Midline. No: MIDLINE TENDERNESS Respiratory/Chest: Present: Clear to Auscultation, Good Air Exchange, Other ( CTA b/l, no w/r/r). No: Respiratory Distress, Accessory Muscle Use Cardiovascular: Present: Regular Rate and Rhythm, Normal S1, S2. No: Murmurs Abdomen: Present: Normal Bowel Sounds, Other (well nourished female, no focal tenderness, no shaikh's sign, no mcburney's point tenderness, no masses/rebound/ guarding). No: Tenderness, Distention, Peritoneal Signs Back: Present: Normal Inspection, CVA Tenderness (right CVAT, no midline tenderness, no gross deformities). No: Midline Tenderness Upper Extremity: Present: Normal Inspection, Normal ROM, NORMAL PULSES, Neurovascularly Intact, Capillary Refill < 2s. No: Cyanosis, Edema Lower Extremity: Present: Normal Inspection, NORMAL PULSES, Normal ROM, Neurovascularly Intact, Capillary Refill < 2 s. No: Edema Neurological: Present: GCS=15, CN II-XII Intact, Speech Normal Skin: Present: Warm, Dry, Normal Color. No: Rashes Psychiatric: Present: Alert, Oriented x 3, Normal Insight, Normal Concentration Medical Decision Making ED Course and Treatment: 12/01/17 10:00 Impression: right flank pain, r/o hydro i have consider all the differential diagnosis regarding pt's chief medical complaints/clinical findings, including but are not limited to: right flank pain A/P: right flank pain - us vs ct - labs - iv - ua - pain control - observe - supportive care Dr Jo called and would like CT for the patient, instead of U/S; will continued to monitor 12/01/[address] results Dr Jo is made aware of CT results, would like to take patient to OR for stent placement; will come to ED to evaluate patient 13:45 pt remained comfortable post pain medications NAD pt is made aware of her medical results agrees with admission/OR placement Re-evaluation Time: 13:20 Reassessment Condition: Improved - Lab Interpretations Lab Results: 12/01/17 11:00 12/01/17 11:00 Lab Results 12/01/17 11:00: Urine Color Yellow, Urine Appearance Clear, Urine pH 7.5, Ur Specific [place] 1.010, Urine Protein 30 H, Urine Glucose (UA) Negative, Urine Ketones Negative, Urine Blood Large H, Urine Nitrate Negative, Urine Bilirubin Negative, Urine Urobilinogen 0.2, Ur Leukocyte Esterase Negative, Urine RBC 15 - 20, Urine WBC 0 - 2, Ur Epithelial Cells 0 - 2, Urine Bacteria Neg 12/01/17 11:00: Sodium 141, Potassium 3.9, Chloride 104, Carbon Dioxide 24, Anion Gap 16, BUN 20, Creatinine 0.9, Est GFR ( Amer) > 60, Est GFR (Non- Af Amer) > 60, Random Glucose 102, Calcium 9.4, Total Bilirubin 0.5, AST 33, ALT 33, Alkaline Phosphatase 97, Total Protein 7.6, Albumin 4.0, Globulin 3.6, Albumin/Globulin Ratio 1.1, Lipase 103 12/01/17 11:00: WBC 7.6 D, RBC 4.42, Hgb 14.1, Hct 40.4, MCV 91.4, MCH 31.9, MCHC 34.9, RDW 12.4, Plt Count 169, MPV 9.6, Gran % 59.2, Lymph % (Auto) 30.8, [place] % (Auto) 7.7 H, Eos % (Auto) 2.2, Baso % (Auto) 0.1, Gran # 4.50, Lymph # ( Auto) 2.4, [place] # (Auto) 0.6, Eos # (Auto) 0.2, Baso # (Auto) 0.01 I have reviewed the lab results: Yes Interpretation: Abnormal lab values (+ RBC in urine) - RAD Interpretation Narrative RAD Interpretations (Text): 12/01/2017 12:55:51 CT Abdomen and Pelvis without intravenous contrast FINDINGS: LOWER THORAX: Unremarkable. LIVER: Unremarkable. No gross lesion or ductal dilatation. GALLBLADDER AND BILE DUCTS: Gallbladder removed PANCREAS: Unremarkable. No gross lesion or ductal dilatation. SPLEEN: Unremarkable. ADRENALS: Unremarkable. No mass. KIDNEYS AND URETERS: There is a 5 mm stone in the right mid ureter with a moderate degree of hydronephrosis and hydroureter. The stone is visualized on axial image 60 series 2 and coronal image 75. Small nonobstructing stones are seen in both kidneys VASCULATURE: Unremarkable. No aortic aneurysm. BOWEL: Unremarkable. No obstruction. No gross mural thickening. APPENDIX: Unremarkable. Normal appendix. PERITONEUM: Unremarkable. No free fluid. No free air. LYMPH NODES: Unremarkable. No enlarged lymph nodes. BLADDER: Unremarkable. REPRODUCTIVE: Unremarkable. BONES: No acute fracture. OTHER FINDINGS: None. IMPRESSION: There is a 5 mm stone in the right mid ureter with a moderate degree of hydronephrosis and hydroureter. Radiology Orders: 12/01/17 10:26 ABD & PELVIS W/O PO OR IV CONT [CT] Stat Biology Department Chair: Radiologist - Medication Orders Current Medication Orders: Discontinued Medications Hydromorphone HCl (Dilaudid) 1 mg IVP STAT STA Stop: 12/01/17 10:07 Last Admin: 12/01/17 10:51 Dose: 1 mg MAR Pain Assessment Document 12/01/17 10:51 GMI (Rec: 12/01/17 10:51 GMI [id number]) Pain Reassessment Is this a pain reassessment? Yes Sleep Is patient sleeping during reassessment? No Presence of Pain Presence of Pain Yes Description Description Sharp Intensity of Pain at present 10 Pain Behavior Moaning IVP Administration Document 12/01/17 10:51 GMI (Rec: 12/01/17 10:51 GMI [id number]) Charges for Administration # of IVP Administrations 1 Sodium Chloride (Sodium Chloride 0.9%) 500 mls @ 999 mls/hr IV .Q31M STA Stop: 12/01/17 10:36 Last Admin: 12/01/17 10:48 Dose: 999 mls/hr eMAR Start Stop Document 12/01/17 10:48 GMI (Rec: 12/01/17 10:49 GMI [id number]) Intravenous Solution Start Date 12/01/17 Start Time 10:48 End Date 12/01/17 End time 10:48 Total Infusion Time 0 Ketorolac Tromethamine (Toradol) 30 mg IVP STAT STA Stop: 12/01/17 10:06 Last Admin: 12/01/17 10:50 Dose: 30 mg MAR Pain Assessment Document 12/01/17 10:50 GMI (Rec: 12/01/17 10:51 GMI [id number]) Pain Reassessment Is this a pain reassessment? Yes Sleep Is patient sleeping during reassessment? No Presence of Pain Presence of Pain Yes Location Upper or Lower Lower Pain Location Body Site Back Description Description Constant Intensity of Pain at present 10 Pain Behavior Moaning Crying IVP Administration Document 12/01/17 10:50 GMI (Rec: 12/01/17 10:51 GMI [id number]) Charges for Administration # of IVP Administrations 1 Ondansetron HCl (Zofran Inj) 4 mg IVP STAT STA Stop: 12/01/17 10:07 Last Admin: 12/01/17 10:52 Dose: 4 mg IVP Administration Document 12/01/17 10:52 GMI (Rec: 12/01/17 10:52 GMI [id number]) Charges for Administration # of IVP Administrations 1 Disposition/Present on Arrival - Present on Arrival Any Indicators Present on Arrival: No History of DVT/PE: No History of Uncontrolled Diabetes: No Urinary Catheter: No History of Decub. Ulcer: No History Surgical Site Infection Following: None - Disposition Have Diagnosis and Disposition been Completed?: Yes Diagnosis: Ureteral stone with hydronephrosis, Acute right flank pain Disposition: HOSPITALIZED Disposition Time: 13:30 Patient Plan: Admission Condition: STABLE Forms: [employer] (Faroese)
[2017-12-01] MEDS ORDERED: HYDROmorphone 1 mg/ml ISec IVP STA (10:06)
[2017-12-01] MEDS ORDERED: Sodium Chloride 0.9% 500 ML IV STA (10:06)
[2017-12-01 10:21] VITALS: BMI 34.5
[2017-12-01 11:27] LABS: BASO # 0.01 K/mm3 (0.0-2.0); BASO % 0.1 % (0.0-3.0); EOS # 0.2 (0.0-0.7); EOS % 2.2 % (1.5-5.0); GRAN # 4.5 (1.4-6.5); GRAN % 59.2 % (50.0-68.0); HEMOGLOBIN 14.1 g/dL (12.0-16.0); LYMPH # 2.4 (1.2-3.4); LYMPH % 30.8 % (22.0-35.0); MEAN CELL VOLUME 91.4 fl (80.0-105.0); MEAN CORPUSCULAR HEMOGLOBIN 31.9 pg (25.0-35.0); MEAN CORPUSCULAR HGB CONC 34.9 g/dl (31.0-37.0); MEAN PLATELET VOLUME 9.6 fl (7.0-11.0); MONO # 0.6 (0.1-0.6); MONO % 7.7 % (1.0-6.0); RBC 4.42 10^6/uL (3.5-6.1); RED CELL DISTRIBUTION WIDTH 12.4 % (11.5-14.5); WHITE BLOOD COUNT 7.6 10^3/ul (4.5-11.0)
[2017-12-01 11:30] LABS: PH,URINE 7.5 (4.7-8.0); URINE BILIRUBIN NEGATIVE (NEGATIVE); URINE BLOOD LARGE (NEGATIVE); URINE GLUCOSE (UA) NEGATIVE (NEGATIVE); URINE LEUKOCYTE ESTERASE NEGATIVE Leu/uL (NEGATIVE); URINE NITRATE NEGATIVE (NEGATIVE); URINE PROTEIN 30 mg/dL (<30 mg/dL); URINE UROBILINOGEN 0.2 E.U./dL (<1 E.U./dL)
[2017-12-01 11:31] LABS: URINE APPEARANCE CLEAR (CLEAR); URINE COLOR YELLOW (YELLOW)
[2017-12-01 11:49] LABS: ALB/GLOB RATIO 1.1 (1.1-1.8); ALT/SGPT 33 U/L (7-56); AST/SGOT 33 U/L (14-36); BLOOD UREA NITROGEN 20 mg/dL (7-21); CALCIUM 9.4 mg/dL (8.4-10.5); GFR AFRICAN-AMERICAN > 60; GFR NON-AFRICAN AMERICAN > 60; LIPASE 103 U/L (23-300)
[2017-12-01 12:07] LABS: URINE BACTERIA NEG (NEG); URINE EPITHELIAL CELLS 0 - 2 /hpf (0-5); URINE RBC 15 - 20 /hpf (0-2); URINE WBC 0 - 2 /hpf (0-6)
--- NOTE | 2017-12-01 12:57 | CT ---
PROCEDURE: CT Abdomen and Pelvis without intravenous contrast HISTORY: r/o stones/hydro COMPARISON: None. TECHNIQUE: Without contrast. Contrast Dose: Radiation dose: Total exam DLP = 965 mGy-cm. This CT exam was performed using one or more of the following dose reduction techniques: Automated exposure control, adjustment of the mA and/or kV according to patient size, and/or use of iterative reconstruction technique. FINDINGS: LOWER THORAX: Unremarkable. LIVER: Unremarkable. No gross lesion or ductal dilatation. GALLBLADDER AND BILE DUCTS: Gallbladder removed PANCREAS: Unremarkable. No gross lesion or ductal dilatation. SPLEEN: Unremarkable. ADRENALS: Unremarkable. No mass. KIDNEYS AND URETERS: There is a 5 mm stone in the right mid ureter with a moderate degree of hydronephrosis and hydroureter. The stone is visualized on axial image 60 series 2 and coronal image 75. Small nonobstructing stones are seen in both kidneys VASCULATURE: Unremarkable. No aortic aneurysm. BOWEL: Unremarkable. No obstruction. No gross mural thickening. APPENDIX: Unremarkable. Normal appendix. PERITONEUM: Unremarkable. No free fluid. No free air. LYMPH NODES: Unremarkable. No enlarged lymph nodes. BLADDER: Unremarkable. REPRODUCTIVE: Unremarkable. BONES: No acute fracture. OTHER FINDINGS: None. IMPRESSION: There is a 5 mm stone in the right mid ureter with a moderate degree of hydronephrosis and hydroureter.
[2017-12-01] MEDS ORDERED: Lidocaine 1% Inj (20ml) ONE (14:53)
[2017-12-01] MEDS ORDERED: Propofol 10 mg/ml Inj (20 ML) ONE (14:55)
[2017-12-01] MEDS ORDERED: Iohexol 240 (50 ml) ONE (15:07)
[2017-12-01] MEDS ORDERED: cefTRIAXone (Rocephin) 1 gm Inj ONE (15:07)
[2017-12-01] MEDS ORDERED: Oxycodone/Acetaminophen 5/325 mg Tab PO PRN (15:29)
[2017-12-01] MEDS ORDERED: HYDROmorphone 0.5 mg/0.5 ml ISec IVP PRN (16:11)
[2017-12-01] MEDS ORDERED: Lactated Ringer's 1,000 ML IV SCH (16:15)
[2017-12-01 16:47] VITALS: TEMP 97.6
[2017-12-01 16:52] VITALS: BP 118/73; PULSE 74; RESP 14; O2SAT 94
--- NOTE | 2017-12-02 10:53 | OP ---
PROCEDURE DATE: 12/01/2017 UROLOGY OPERATIVE NOTE PREOPERATIVE DIAGNOSES: Urolithiasis; hematuria; severe right renal colic; history of left kidney stone, no stones on the left side today; history of cystine stones, and an obstructing right ureteral stone with right hydronephrosis. PROCEDURE: Cystoscopy, right retrograde pyelogram, insertion of right double-J stent. COMPLICATIONS: There were no complications. FINDINGS: Very impacted mid ureteral stone. Contrast as we could see the outline very nicely. It was very difficult to identify the stone on a wharf tender film, but we could see where it is because that is where it looks like it has been then we injected the contrast even more and then when we tried to put the wire, that is exactly where it is extremely impacted, approximately a little bigger, closer to 8 mm or so, but very impacted with a lot of hydronephrosis. But , patient has a new double-J stent with no string. And then plans to be discussed. DESCRIPTION OF PROCEDURE: After obtaining informed consent, the patient was placed on the table. Routine monitor was placed. Time-out was called to confirm the patient's positioning. We introduced the cystoscope via urethra. Presiding Judge films were performed. In the retrospect where we think the stone is, it is there. I do not know if we saved enough films, but initially it is a very faint stone. It is definitely not easy to identify. It is only after the . normal urethra. Ureteral orifice was identified. A retrograde pyelogram is performed. Massive amount of hydro and you could see where the stone is and it correlates well. I do not know if the remediation technician saved all the x-ray films. Hopefully, the films were saved. We continued though in the following fashion, so retrograde pyelogram was performed. The outline of the stone, massive amount of hydronephrosis. It is difficult to get the wire passed, even the stone is still impacted. We used the technique of the open-ended with the wire and jiggled and negotiated and just a little Trendelenburg, or a little turning, a little twisting until we got the splint and once we got the wire up and then we got the stent over the wire, continues going up the wire up to the stone and the wire over. Now, we inserted the double-J stent. We used a 4.7, it was so impacted, it was difficult to get it fixed. The 3.8, I think, was too small, so we did a 4.7. Bladder was emptied. Films are submitted. There are no complications. No blood loss. ADDENDUM: The patient then went home. I spoke to her. She is doing terrifically well. Tremendous amount of discomfort, but nothing major. I discussed options. The patient and we are going to discuss option further in the office about a cystoscope done by me with a ureteroscopy and laser lithotripsy and location will be discussed whether [place] or whether we bring Ms. Bola[facility]. Further plans will follow. She and I will then discuss all the different options. Elijah Jo MD
--- NOTE | 2017-12-02 11:01 | RAD ---
PROCEDURE: Fluoroscopy up to 1 hour HISTORY: RIGHT URETER STENT INSERTION COMPARISON: TECHNIQUE: Fluoroscopy was provided in the operating room. Nine images were submitted FINDINGS: The study shows placement of a wire in the right ureter and collecting system and placement of a stent. The procedure was performed by Dr. Elijah Jo. IMPRESSION: As above
--- NOTE | 2017-12-02 11:10 | HP ---
UROLOGY EMERGENCY ADMISSION REASON FOR ADMISSION AN EMERGENCY: Severe renal colic. See below. HISTORY OF PRESENT ILLNESS: Ms. Bolaños is a very pleasant lady, I know well. She is a 52-year-old. She has history of cystine stones. I treated her years ago and then more recently a few months back, I saw the patient at that time as an emergency. Again then, I put a stent in the middle of the night, overnight then. She was actually septic at that time. You can see those previously dictated notes. She had stone, a very large stone burden, thought as big at the hospital. I discussed with her the general standard recommendations, percutaneous nephrostolithotomy, she was having none of that. So, I discussed other options with the patient including ureteroscopy, laser lithotripsy. I explained to her that I would be able to try to help her but it would take me several trips to the operating room at least and I really strongly recommend a percutaneous nephrostolithotomy, but if not, I would recommend a doctor in [facility]. I then made arrangements with the patient, I helped her, I gave her the name, the phone number, and made contact as needed and then, the patient went to get treated, these were all in the left side at that time until she was stone free. In the interim, I had spoken to the patient many times and texted her and she had been doing well. This was all left sided as far as we could tell and see the plans listed below, but she actually has no left-sided stones right now. Meanwhile today at about 05:00 a.m., the patient called me to my cell phone; again, we have been in touch many times before now and she states she is having severe renal colic. We discussed options. She said she thinks "this one is stuck," brought her to the hospital now as an emergency. We are going to put a stent in emergently, see below. I spoke to the ER doctor and made recommendations for a CT scan. CAT scan is now done, it is a 5-mm obstructive stone with hydronephrosis. we are going to the OR immediately. PAST MEDICAL AND SURGICAL HISTORY: All listed on the chart. SOCIAL HISTORY: On a social note, essentially very unremarkable history. She has a daughter who have been here to the hospital with her. Though, right now, I do not see anybody with her. The remainder of her review of systems and social history are really essentially unremarkable. The patient is doing well. As they sidelined, she was supposed to see Dr. Portillo that is the doctor I had recommended. Tomorrow, we will be ordering a new CAT scan or going to review a CAT scan, see below because now I know more information. But I guess the patient was supposed to get a new CAT scan, although I don't think they will need to do that now that we have this CAT scan today, see below. Past medical and surgical history, relatively unremarkable. Review of systems, everything is really unremarkable. PHYSICAL EXAMINATION: GENERAL: A well nourished female. She is in moderate distress. She actually feels fairly uncomfortable. She has not gotten any pain medicine recently. VITAL SIGNS: Within normal limits. LUNGS: Clear. ABDOMEN: Soft, nontender. , otherwise, an unremarkable exam. PELVIC: Did not show any pelvic or rectal masses. within normal limits. LABORATORY DATA: See chart. CT scan, see chart, I have had a chance to review the CT scan. DIAGNOSES 1. Severe right renal colic. 2. History of urolithiasis. 3. History of cystinuria and cystine stones (both). I believe she had a 24-hour urine test. The patient now has severe renal colic, hematuria, hydronephrosis. SUMMARY: A very pleasant [id number]-old. I discussed options. I discussed I am happy to put a stent in today and then, she can return to Dr. Portillo. She said she cannot make her to wait to see him. I also discussed with other possibility for her just staying here for simply ureteroscopy with lithotripsy, one single stone. I also expressed that the patient she seems to be without stones on the patient's left side; when she had such a severe situation, she had seen somebody before me. That is when I discussed options with the patient, it seemed to make reasonable sense. Onetime treatment really with a percutaneous nephrostolithotomy, but as an alternative, the ureteroscopy with lithotripsy. I now received the CAT scan result, everything seems to be great. We will have to discuss all these with the patient at great length. Risks, benefits, and alternatives discussed. Other possibilities, we discussed the possibility for shock wave lithotripsy. Again, it is a same stone and has not previously responded, that is not really my recommendation despite anything else. We know that the cystine stones are hard. We discussed all these options at length. From urology standpoint, the plan will be as follows: 1. An emergency cystoscopy. 2. We will plan for a stent. And then, further plans, we will follow Dr. Portillo. See the addendum. ADDENDUM TO THE OPERATIVE NOTE Put a stent in the stone, really has a tremendous amount of hydronephrosis. I spoke to the patient afterwards, she is feeling much better, wants to go home, in fact, she immediately wants to go home. She is feeling much better ____. Normal discomfort that she was "expecting." We discussed other options. PLAN: At this point is, discharge home. Antibiotics. Flomax, Motrin, analgesics as needed, straining the urine and hoping that the stone would pass and if not, we will discuss the next step of recommendations and plans. I spoke to the patient after discharge, she is essentially doing great. procedural discomfort; up and around. Elijah Jo MD
--- NOTE | 2017-12-02 14:43 | CARD ---
APPROVED REPORT EKG Measurement Heart [id number] <Conclusion> Normal sinus rhythm Normal ECG
== END 2017-12-01 19:48 | disposition home or self-care (01) ==
LOC: ED 09:42 → SDS 15:14 → 5RSO 17:21 → SDS 19:48
PROVIDERS: ATTEND Urology
DX: N13.2 Hydronephrosis with renal and ureteral calculous obstruction (principal); I10 Essential (primary) hypertension; R31.9 Hematuria, unspecified
CPT/HCPCS: 52332; 74176; 76000; 80053; 81001; 83690; 85025; 93005; 96374; 96375; 99285; C1758; C1769; C2617; C2625; J0696; J1170 ×2; J1885; J2405; J2704; J2765; J3010; J7040; J7120; Q9966